=== PATIENT | male | born 1975 | race Caucasian/White ===

== ENCOUNTER 2024-06-20 11:29 | Outpatient (CLI) | payer OTHER | END 2024-06-20 23:59 | disposition short-term general hospital (02) | LOC: EMS 11:29 | DX: S49.91XA Unspecified injury of right shoulder and upper arm, initial encounter (principal); M54.6 Pain in thoracic spine; S40.811A Abrasion of right upper arm, initial encounter; S60.511A Abrasion of right hand, initial encounter; S50.812A Abrasion of left forearm, initial encounter; S50.811A Abrasion of right forearm, initial encounter; V29.498A Other motorcycle driver injured in collision with other motor vehicles in traffic accident, initial encounter; Y93.55 Activity, bike riding; Y92.415 Exit ramp or entrance ramp of street or highway as the place of occurrence of the external cause | CPT/HCPCS: A0425; A0429 ==